=== PATIENT | female | born 1970 | race Caucasian/White ===

== ENCOUNTER 2017-03-05 18:54 | Emergency (ER) | payer SELFPAY ==
[~2017-03-05] VITALS: Ht 162.6 cm; Wt 72.0 kg
[2017-03-05] MEDS ORDERED: LIDOCAINE HCL 1% 20ML VIAL (Pyxis) INJ INFIL ONE (22:45)
[2017-03-05] MEDS ORDERED: TETANUS, DIPHTHERIA, PERTUSSIS VAC/PF 0.5ML (>7YR OLD) IM ONE (23:30)
[2017-03-05] MEDS ORDERED: BACITRACIN ZINC OINT UDPKT TOP ONE (23:30)
[2017-03-06 00:05] VITALS: BP 128/70
== END 2017-03-06 00:06 | disposition home or self-care (01) ==
LOC: ER 19:00
DX: S61.241A Puncture wound with foreign body of left index finger without damage to nail, initial encounter (principal); W45.8XXA Other foreign body or object entering through skin, initial encounter; W29.2XXA Contact with other powered household machinery, initial encounter; Y93.D2 Activity, sewing; Y92.018 Other place in single-family (private) house as the place of occurrence of the external cause
CPT/HCPCS: 10120; 90471; 90715; 99284; J3490; Z7610; 11200